=== PATIENT | female | born 1980 | race Caucasian/White ===

== ENCOUNTER 2020-10-11 13:04 | Emergency (ER) | payer OTHER, SELFPAY ==
--- NOTE | ~2020-10-11 | XR_ITS ---
EXAMINATION: XR knee RT min 4V DATE: 10/11/2020 13:43 INDICATION: Right knee pain TECHNIQUE: Four views of the right knee were obtained. COMPARISON: None. FINDINGS: Alignment is normal. No fracture or osteochondral lesion. 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 There is a vdeog-pa-ncbmoogv size joint effu rosana. Soft tissues are unremarkable. IMPRESSION: 1. Sbebr-vk-xqjatmqx size joint effusion without acute osseous abnormality. Reviewed, dictated and finalized at location B. IMPRESSION: 1. Iyebp-qs-ruetzcla size joint effusion without acute osseous abnormality.
[2020-10-11 13:15] VITALS: BP 153/88; PULSE 95; RESP 20; TEMP 37.1; O2SAT 99
--- NOTE | 2020-10-11 13:32 | ED.LOWEXIN ---
HPI - Extremity Injury (Lower) General Chief Complaint: Extremity Injury, Lower Stated Complaint: right knee pain Time Seen by Provider: 10/11/20 14:10 Source: patient and RN notes reviewed Mode of arrival: ambulatory Limitations: no limitations History of Present Illness HPI Narrative: 40 year old female presents to [facility] care with 6 day history of right knee pain with some edema noted to medial aspect of right knee. Patient reports being on vacation and attending water park, states she thinks she twisted her knee and then she started experiencing pain with the swelling, Patient reports that she has been taking Ibuprofen and using Aspercreme to her right knee and application of ice to her knee. Patient reports increase in discomfort with ambulation and movement of her right knee. MD complaint: knee injury Onset (ago): day(s) (6) Injury: Right: knee Type of Injury: other (twisted) Place: street/outdoors Severity: moderate Severity scale (1-10): 6 Relieving factors: rest Exacerbating factors: weight bearing and movement Context: other (twisted) Associated symptoms: swelling and other (pain to right knee) Treatments prior to arrival: cold therapy and NSAIDS Related Data Allergies Allergy/AdvReac Type Severity Reaction Status Date / Time Sulfa (Sulfonamide Allergy Unknown HIVES/VOMIT Verified 10/11/20 13:35 Antibiotics) ING migraine meds AdvReac Unknown Uncoded 10/11/20 13:35 Review of Systems Review of Systems: CONSTITUTIONAL: Denies fever, chills, or sweats. EYES: Denies visual changes, redness, or discharge. ENT: Denies rhinorrhea, congestion, sore throat, or otalgia. CARDIOVASCULAR: Denies chest pain, palpitations, or edema. RESPIRATORY: Denies cough or dyspnea. GASTROINTESTINAL: Denies abdominal pain, nausea, vomiting, or diarrhea. GENITOURINARY: Denies dysuria or hematuria. SKIN: Denies rash or itching. MUSCULOSKELETAL: Denies back pain,positive right knee pain, or myalgia. NEUROLOGIC: Denies headache, numbness, or weakness. PSYCHIATRIC: Denies anxiety or depression. All systems reviewed & are unremarkable except as noted in HPI and below PMFSH Surgical History Surgical History (Updated 10/11/20 @ 15:01 by Leonor Hui NP) H/O: hysterectomy History of foot surgery bilateral Previous section Family History Family History (Updated 10/11/20 @ 14:52 by Leonor Hui NP) Mother Arthritis Hypertension Heart disease Sibling Hypertension Diabetes mellitus Father COPD (chronic obstructive pulmonary disease) Social History Social History (Updated 10/11/20 @ 14:53 by Leonor Hui NP) Smoking packs per day: 0.5 Smoking cigarettes per day: 10.0 Years smoked: 19 Smoking pack-years: 9.50 Smoking status: Current every day smoker Tobacco type: cigarettes Alcohol intake: never Substance use: never Living arrangements: with family Gender identity (if verbalized by the patient): Female Comments At time of signature, agree with nursing past medical, surgical, social and family history. There is no relevant family history pertinent to the presenting complaint Exam Narrative: GENERAL: Well-appearing, well-nourished, and in no acute distress. HEAD: Normocephalic, atraumatic. EYES: PERRLA and EOMI. ENT: Nares clear, no rhinorrhea or epistaxis. Mucous membranes moist.TM's normal with good light reflex, throat pink with no lesion exudates or tonsil enlargement. NECK: Supple. No lymphadenopathy CHEST: Clear to auscultation. No respiratory distress. SaO2 99% on room air HEART: Regular rate and rhythm. No murmur heard. Normal peripheral pulses. ABDOMEN: Soft, nontender, nondistended, normal active bowel sounds. EXTREMITIES: Painful range of motion with edema to right knee pain medially across to lateral and posterior aspect of right knee, palpable swelling to medial aspect of right knee, patient denies any tingling or numbness to her right knee or lower leg, strong pul
== END 2020-10-11 14:35 | disposition home or self-care (01) ==
PROVIDERS: Emergency Provider Registered Nurse; PCP Family Medicine
DX: M25.561 Pain in right knee (principal); M25.461 Effusion, right knee; F17.210 Nicotine dependence, cigarettes, uncomplicated
CPT/HCPCS: 73564; 99213; G0463